=== PATIENT | male | born 1955 | race Caucasian/White ===

== ENCOUNTER 2017-08-25 05:22 | Inpatient (IN) | payer OTHER ==
[2017-08-16 13:11] LABS: HEMATOCRIT 44.6 % (42.0-52.0); HEMOGLOBIN 15.1 gm/dL (14.0-18.0); MCH 31.9 pg (26.0-34.0); MCHC 33.9 g/dL (28.0-37.0); RBC 4.75 mil/uL (4.50-6.00); RDW 13.4 % (10.5-14.5); WBC 6.5 thou/uL (4.0-11.0)
[2017-08-16 13:15] LABS: URINE BILIRUBIN NEGATIVE (Negative); URINE BLOOD NEGATIVE (Negative); URINE CLARITY CLEAR; URINE COLOR YELLOW; URINE GLUCOSE-RANDOM* NEGATIVE (Negative); URINE KETONES NEGATIVE (Negative); URINE LEUKOCYTES-REFLEX NEGATIVE (Negative); URINE NITRITE-REFLEX NEGATIVE (Negative); URINE PROTEIN (DIPSTICK) NEGATIVE (Negative); URINE UROBILINOGEN 0.2 E.U./dl (0.2-1.0)
[2017-08-16 13:26] LABS: PROTIME 9.6 Seconds (9.3-11.4)
[2017-08-16 13:31] LABS: ALBUMIN 4.2 g/dL (3.4-5.0); CALCIUM 9.8 mg/dL (8.5-10.1); CREATININE 0.9 mg/dL (0.7-1.3); POTASSIUM 4.2 mmol/L (3.5-5.1)
[2017-08-25] VITALS (15 sets, daily range): BP systolic 107–157; BP diastolic 55–89
[~2017-08-25] VITALS: Ht 172.7 cm; Wt 81.6 kg
--- NOTE | ~2017-08-25 | O ---
[facility] [place] [address] OPERATIVE REPORT Name: BARBY JIMENEZ Room #: 402-P [facility] M.R.#: [id number] Admission: 08/25/17 Attend Phys: Shantanu Ryder MD Discharge: Date of : 53 Report #: [id number] THIS REPORT FOR: //name// CC: FAM unknown Shantanu Ryder DATE OF SERVICE: 08/25/2017 PREOPERATIVE DIAGNOSIS: Left knee medial compartment osteoarthritis. POSTOPERATIVE DIAGNOSIS: Left knee medial compartment osteoarthritis. PROCEDURE: Left unicompartmental knee arthroplasty. SURGEON: Shantanu Ryder MD ESTIMATOR AND DRAFTER SUPERVISOR: Cesilia Ash PA-C INDICATION FOR ASSISTANCE: Throughout the case, extensive retraction and manipulation of the knee was required. This was afforded to me by my furniture removalist's assistant. ANESTHESIA: LMA with an adductor canal block. IMPLANTS: [employer] [place] size medium twin peg femur, a size D tibia and a size 5 polyethylene. TOURNIQUET TIME: 62 minutes. ESTIMATED BLOOD LOSS: 50 mL. COMPLICATIONS: None. SPECIMENS: None. CONDITION UPON LEAVING THE OPERATING ROOM: Stable. INDICATIONS FOR PROCEDURE: The patient is a 62-year-old gentleman with severe left knee medial compartment osteoarthritis. He had failed conservative treatment for this and after discussion with him, he elected for left knee medial compartment arthroplasty. DESCRIPTION OF PROCEDURE: Risks, benefits, alternatives and complications were discussed in detail with the patient including but not limited to risk of anesthesia, risk of damage to nerves, arteries, blood vessels, risk for infection, bleeding, risk for continued knee pain and need for reoperation. Informed consent was obtained from the patient. The left knee was appropriately [facility] [address] [place] [address] OPERATIVE REPORT Name: BARBY JIMENEZ A Room #: 402[facility] M.R.#: [id number] Admission: 08/25/17 Attend Phys: Shantanu Ryder MD Discharge: Date of : 53 Report #: [id number] marked in the preoperative holding area. Adductor canal block was placed by Anesthesia. IV Ancef was given for preoperative antibiotics. He was brought to the operating room and placed in the supine position on operating room table. LMA anesthesia was induced without complications. Tourniquet was placed on the left thigh. Left lower extremity was prepped and draped in normal sterile fashion. Timeout was performed, properly identifying the patient, procedure as well as the instrumentation and implants. All in the operating room were in agreement. Left lower extremity was exsanguinated, tourniquet was inflated. Tourniquet time was 62 minutes. A standard approach to the medial knee was made with a 10 blade through the skin. Dissection was taken down sharply to the fascia and deep flaps were developed medially and laterally. Fresh 10 blade was used to make a medial parapatellar arthrotomy and the fat pad was removed sharply. Knee was inspected and found to have severe medial compartment osteoarthritis. The lateral compartment was well maintained. 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 The medial meniscus was removed sharply and the tibial resection guide was pinned in place based off the medium femoral spoon taking a 3 mm spacer . The medial resection was sized and found to be a size D and a size D tibial trial was placed and the flexion gap was measured to be a 4. Tibial resection guide and IM alignment was used for the femur. Drill was used to gain access to the canal of the femur and the femoral guide for the twin peg system was connected to the IM donya and drill holes for the twin pegs were made. Posterior femoral resection was then made using the appropriate guide and the zero spigot was placed and the femur was milled. This was then trialled with a size D tibia and a medium femoral trial. The flexion gap was a 5. The extension gap was a 1. The 4 spigot was placed and the femur was milled again and trialed and found to have good balance in flexion and extension both medially and laterally. The anterior chamfer was removed from the femur. The keel cut for the tibia was made and a keeled tibial trial was placed, a medium femoral trial was placed and a size 5 polyethylene trial was placed. Knee was taken through range of motion, found to be stable, found to have good balance in flexion and extension both medially and laterally. After this, trial components were removed. Bony ends were thoroughly irrigated with normal saline and a final size D tibia and a size medium femur were cemented in place using standard cementation techniques. After the cement cured, a periarticular injection consisting of morphine, ropivacaine, epinephrine and Toradol was placed. The knee was trialed again with a size 5 polyethylene and found to have good balance in that. A final size 5 polyethylene was placed. A gram of vancomycin was placed deep in the knee joint. The fascia was closed with 0 Vicryl, skin was closed with 2-0 Vicryl, 3-0 Monocryl, Dermabond and a SUNDAR dressing was applied. The patient tolerated [facility] [address] [place] [address] OPERATIVE REPORT Name: JIMENEZBARBY Room #: 402[facility] M.R.#: [id number] Admission: 08/25/17 Attend Phys: Shantanu Ryder MD Discharge: Date of : 53 Report #: [id number] this procedure well and went to the recovery room under care of Anesthesia postoperatively. <ELECTRONICALLY SIGNED> By: Shantanu Ryder MD 08/26/17 0735 1540 1718 Shantanu Ryder MD /nt
--- NOTE | ~2017-08-25 | EKG ---
[address] [address] ELECTROCARDIOGRAM REPORT Name: BARBY JIMENEZ Room #: PRE IN [facility]#: [id number] Admission: Attend Phys: Shantanu Ryder MD Discharge: Date of : 53 Report #: [id number] THIS REPORT FOR: //name// [facility] Test Date: 2017-08-16 Test Time: 12:38:45 Pat Name: BARBY JIMENEZ Department: Room: Gender: Frame Sample [employer] Pattern Supervisor: CONSTANCE GORDON : 1955 Requested By: Shantanu Ryder Order Number: [id number] MD: Scott Irwin Measurements Intervals [place] Rate: 60 P: 78 TN: 158 QRS: 54 QRSD: 103 T: 43 QT: 398 QTc: 398 Interpretive Statements Sinus rhythm Normal tracing No previous ECG available for comparison Electronically Signed On 08-16-2017 14:17:31 [employer] by Scott Irwin [email or web address] <ELECTRONICALLY SIGNED> By: Scott Irwin MD, [facility] 08/16/17 1417 1238 1238 Scott Irwin MD, FACC /EPI
[~2017-08-25 05:22] MED LIST: ALPHAGAN P5 ML OPHTHALMIC; BEVESPI AEROS10.7 GM INH; CARVEDILOL3.125 MG PO; COZAAR100 MG PO; NAPROXEN SODIU220 MG PO; NORVASC10 MG PO; OMEPRAZOLE40 MG PO; PROAIR HFA8.5 GM INH
[2017-08-26 04:45] LABS: HEMATOCRIT 39.8 % (42.0-52.0); HEMOGLOBIN 13.6 gm/dL (14.0-18.0); MCH 32.2 pg (26.0-34.0); MCHC 34.2 g/dL (28.0-37.0); MCV 94.1 fL (80.0-100.0); RBC 4.23 mil/uL (4.50-6.00); RDW 13.1 % (10.5-14.5); WBC 13.6 thou/uL (4.0-11.0)
[2017-08-26 05:00] VITALS: BP 138/76
[2017-08-26 07:23] VITALS: BP 161/80
[2017-08-26] MEDS ORDERED: TRI-BUFFERED A325 M1 PO (09:58)
[2017-08-26] MEDS ORDERED: PERCOCET PO (09:59)
[2017-08-26] MEDS ORDERED: MS CONTIN15 MG PO (09:59)
[2017-08-26] MEDS ORDERED: NEURONTIN 300300 M1 PO (10:00)
[2017-08-26 10:36] VITALS: BP 161/80
== END 2017-08-26 10:54 | disposition home or self-care (01) | DRG 470 ==
LOC: 4N 05:22 → TBA 05:22 → PRE 05:37 → TBA 16:41 → 4N 16:55 → ENTRNSPT 08-26 10:47 → EDTRNSPTSTS 08-26 10:49 → 4N 08-26 10:54
PROVIDERS: Orthopaedic Surgery
PROC: 0SRD0L9 Replacement of Left Knee Joint with Medial Unicondylar Synthetic Substitute, Cemented, Open Approach (ICD-10-PCS; principal; 2017-08-25)
PROC: 3E0T3BZ Introduction of Anesthetic Agent into Peripheral Nerves and Plexi, Percutaneous Approach (ICD-10-PCS; 2017-08-25)
DX: M17.12 Unilateral primary osteoarthritis, left knee (principal)
CPT/HCPCS: 10790; 50010; 50101; 50415; 51130; 51225; 51771; 52056; 53078; 53370; 54118; 55262; 56527; 56528; 57095; 62110; 62900; 64043